=== PATIENT | male | born 1980 | race Caucasian/White ===

== ENCOUNTER 2019-09-27 09:05 | Emergency (ER) | payer SELFPAY ==
[2019-09-27 09:09] VITALS: BP 156/93; PULSE 95; RESP 16; TEMP 36.4; O2SAT 97; BMI 26.6
== END 2019-09-27 14:46 | disposition left against medical advice (07) ==
LOC: ER 10:14
PROVIDERS: Emergency Provider Physician Assistant
DX: R22.40 Localized swelling, mass and lump, unspecified lower limb (principal); R22.2 Localized swelling, mass and lump, trunk; N50.89 Other specified disorders of the male genital organs; F17.210 Nicotine dependence, cigarettes, uncomplicated; Z53.21 Procedure and treatment not carried out due to patient leaving prior to being seen by health care provider
CPT/HCPCS: 99281

== ENCOUNTER 2019-11-20 07:53 | Emergency (ER) | payer SELFPAY ==
[2019-11-20 08:00] VITALS: BP 152/103; PULSE 82; RESP 17; TEMP 36.5; O2SAT 99; BMI 26.6
[2019-11-20 08:08] VITALS: PULSE 88; RESP 16; O2SAT 99
--- NOTE | 2019-11-20 08:12 | ED_ITS ---
Documented by User: SHERIF Lu 11/20/19 12:18 HPI - Skin/Abscess/Foreign Bdy General: Chief complaint: Skin/Abscess/Foreign Body Stated complaint: BOIL/CYST ON R LEG Time Seen by Provider: 11/20/19 07:57 History of Present Illness: HPI narrative: Patient is a 39-year-old male who comes to the ED with abscess on right medial thigh. Abscess started about 2 to 3 weeks ago and has progressed getting bigger and more painful. It has not come to ahead or started draining. It is very tender to touch. Denies any penile lesions or ulcers, penile drainage, dysuria and hematuria. He also denies any history of MRSA or staph infection. Denies any fevers, chills, shortness of breath, nausea, vomiting, abdominal pain, bowel symptoms. Associated symptoms: Deny chills, fever(s), nausea or vomiting Review of Systems Const: Denies: fever, chills or fatigue Eyes: Denies: change in vision or eye discomfort ENMT: Denies: throat pain, painful swallowing, nasal discharge or nasal congestion Card: Denies: chest pain, palpitations, edema, swelling of feet/ankles, shortness of breath on exertion or shortness of breath when lying down Resp: Denies: shortness of breath, productive cough or non-productive cough GI: Denies: abdominal pain, nausea, vomiting, diarrhea, constipation or blood in stool : Denies: flank pain, difficulty urinating, painful urination or blood in urine Musc: Denies: neck pain, back pain or extremity swelling Skin/Breast: Reports: new lesion (Possible abscess on right medial thigh (groin)); Denies: rash Neuro: Denies: headache, numbness in extremities or weakness in extremities [facility] ED PFSH: Social History Smoking and tobacco status: current every day smoker Physical Exam Narrative: EXAM NARRATIVE: Patient is a 39-year-old male who is sitting comfortably on the exam bed when I enter the room. He is showing no signs of acute distress or acute respiratory distress. Const: COMMON NORMALS: oriented x3 HENMT: COMMON NORMALS: normocephalic HEAD & SCALP: normocephalic MOUTH: oral and palatal mucosa normal THROAT: posterior oropharynx normal and uvula midline Neck/C-Spine: COMMON NORMALS: supple GENERAL: Yes normal visual inspection Resp: COMMON NORMALS: normal respiratory effort, no retractions, no use of accessory muscles and clear to auscultation bilaterally AUSCULTATION: clear to auscultation bilaterally Cardio: COMMON NORMALS: regular rate, regular rhythm, S1 normal heart sound, S2 normal heart sound, no gallops, no clicks, no murmurs and peripheral pulses 2+ throughout RATE: regular rate RHYTHM: regular rhythm HEART SOUNDS: S1 normal and S2 normal PERIPHERAL PULSES: pulses 2+ throughout GI: COMMON NORMALS: normal to inspection, nondistended, normoactive bowel sounds, soft to palpation, non-tender and no masses PALPATION: Yes soft : COMMON NORMALS: Yes no CVA tenderness BLADDER/KIDNEY EXAM: Yes no CVA tenderness Back/Pelvis: COMMON NORMALS: no CVA tenderness Extremity: COMMON NORMALS: normal to inspection Neuro: COMMON NORMALS: oriented x3 and moves all extremities Skin: LESIONS: lesion noted Right Medial Thigh Lesion type: Yes bulla Lesion size (cm): 1.5 Lesion location: Medial aspect of Right Thigh (Groin) Lesion distribution: Yes other Lesion color: Yes red, Yes erythematous base and Yes surrounding erythema Lesion consistency: No fluctuent and Yes indurated Lesion surface: Yes dry, Yes raised, No pointed, No draining, Yes shiny and Yes warm Lesion border: Yes surrounding erythema Lesion tenderness: Yes moderate Lesion finding consistent with: Yes other (abscess with surrounding cellulitis) Procedures Abscess I/D Site: lower extremity (Right medial Thigh (Groin)) Side (if applicable): right Local Anesthetic: lidocaine 2% Amount of anesthesia used (mL): 10 Technique: incised with #11 blade Amount of fluid expressed (mL): 3 Irrigation: Yes Packing used?: none Course Reevaluation(s): Reevaluation #1: I used the portable bedside ultrasound to see if lesion has any fluid-filled pocket to drain. I was able to identify a fluid-filled pocket for draining via bedside ultrasound. Time: 08:20 Vital Signs: Vital signs: Vital Signs Temperature 97.7 F 11/20/19 08:00 Pulse Rate 86 11/20/19 09:14 Respiratory Rate 18 11/20/19 09:14 Blood Pressure 162/97 11/20/19 09:14 Pulse Oximetry 97 11/20/19 09:14 Discharge Plan Discharge Patient Disposition: Home, Self-Care Clinical Impression: Abscess of skin or subcutaneous tissue Qualifiers: Site of cutaneous abscess: extremity Site of cutaneous abscess of extremity: lower extremity Laterality: right Qualified Code(s): L02.415 - Cutaneous abscess of right lower limb Condition: Stable Prescriptions: New Bactrim DS 800-160 mg tablet 1 tab PO BID 7 Days Qty: 14 RF: 0 Discharge Orders: Discharge Order (Routine); Ordered 11/20/19 Ordered By: Balwinder Buchanan Discharge Diet: Regular Discharge Activity: Resume usual activity Patient Instructions: Abscess Incision and Drainage (ED), Abscess (ED) Activity Restrictions/Additional Instructions: Follow-up with your PCP for reevaluation in 5 to 7 days. Take full course of antibiotic as prescribed. Keep abscess area clean daily and you can apply a bandage there daily as well. Take ibuprofen or Tylenol for pain. 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 Comprehensive Documented by User: Zana Kramer DO 11/21/19 06:59 HPI - Skin/Abscess/Foreign Bdy General: Chief complaint: Skin/Abscess/Foreign Body Stated complaint: BOIL/CYST ON R LEG Time Seen by Provider: 11/20/19 07:57 PFS ED PFSH: Social History Smoking and tobacco status: current every day smoker Course Vital Signs: Vital signs: Vital Signs Temperature 97.7 F 11/20/19 08:00 Pulse Rate 86 11/20/19 09:14 Respiratory Rate 18 11/20/19 09:14 Blood Pressure 162/97 11/20/19 09:14 Pulse Oximetry 97 11/20/19 09:14 MDM - Skin/Abscess/Foreign Bdy MDM Narrative: Medical decision making narrative: Reviewed case with midlevel and discussed agree with assessment and plan Discharge Plan Discharge Patient Disposition: Home, Self-Care Clinical Impression: Abscess of skin or subcutaneous tissue Qualifiers: Site of cutaneous abscess: extremity Site of cutaneous abscess of extremity: lower extremity Laterality: right Qualified Code(s): L02.415 - Cutaneous abscess of right lower limb Condition: Stable Prescriptions: New Bactrim DS 800-160 mg tablet 1 tab PO BID 7 Days Qty: 14 RF: 0 Discharge Orders: Discharge Order (Routine); Ordered 11/20/19 Ordered By: Balwinder Buchanan Discharge Diet: Regular Discharge Activity: Resume usual activity Patient Instructions: Abscess Incision and Drainage (ED), Abscess (ED) Activity Restrictions/Additional Instructions: Follow-up with your PCP for reevaluation in 5 to 7 days. Take full course of antibiotic as prescribed. Keep abscess area clean daily and you can apply a bandage there daily as well. Take ibuprofen or Tylenol for pain. 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
[2019-11-20] MEDS: HYDROcodone-acetaminophen 7.5-325 mg Tablet 1 TAB PO (08:31)
[2019-11-20] MEDS: sulfamethoxazole-trimeth DS 160-800 mg Tablet 1 TAB PO (09:04)
[2019-11-20 09:14] VITALS: BP 162/97; PULSE 86; RESP 18; O2SAT 97
== END 2019-11-20 09:14 | disposition home or self-care (01) ==
PROVIDERS: Emergency Provider Physician Assistant
DX: L02.415 Cutaneous abscess of right lower limb (principal); F17.200 Nicotine dependence, unspecified, uncomplicated
CPT/HCPCS: 10060; 12345; 87070; 87075; 87205; 99282; 99283; J2001